=== PATIENT | female | born 1965 | race American Indian/Alaskan Native ===

== ENCOUNTER 2017-05-13 16:13 | Emergency (ER) | payer MEDICAID ==
[2017-05-13] MEDS ORDERED: Sodium Chloride 0.9% 1,000 ML IV ONE (16:31)
[2017-05-13] MEDS ORDERED: (Novolin R) Insulin Human Regular 100 units/ml vial IV STA (16:31)
[2017-05-13 17:03] LABS: HCG,QUALITATIVE URINE NEGATIVE (NEGATIVE)
[2017-05-13 17:04] LABS: SQUAMOUS EPITHIAL < 1 /hpf (0-5); URINE BILIRUBIN NEGATIVE (NEGATIVE); URINE BLOOD NEGATIVE (NEGATIVE); URINE CLARITY Clear (Clear); URINE COLOR Colorless (YELLOW); URINE GLUCOSE (UA) 3+ mg/dL (Normal); URINE LEUKOCYTE ESTERASE NEG Leu/uL (Negative); URINE NITRATE NEGATIVE (NEGATIVE); URINE PROTEIN NEGATIVE (NEGATIVE); URINE UROBILINOGEN NORMAL mg/dL (0.2-1.0)
--- NOTE | 2017-05-13 17:10 | C.PDOC ---
History Of Present Illness 52 y/o female presents to ED by BLS/ALS with complaints of acute and chronic back pain. Patient was admitted in a medical center over night on 05/10 and discharged, then again over night on 05/11 and discharged. Pt states she has been taking Percocet for her back pain and has none now. Pt is here for the first time with no prior radiology examinations in our hospital system. Pt histrionic, yelling, crying, claiming she is in unbearable back pain and cannot allow examination of her back. Pt has hx of extensive narcotic, Xanax and ambien regimen- Percocet last filled on January 2017, x60 tabs 10/325. Denies any other complaints. Time Seen by Provider: 05/13/17 16:30 Chief Complaint (Nursing): High Blood Sugar History Per: Patient History/Exam Limitations: no limitations Onset/Duration Of Symptoms: Hrs Current Symptoms Are (Timing): Still Present Associated Infectious Symptoms: denies: Cough, Dysuria, Urinary Urgency, Urinary Frequency, Nausea, Vomiting, Diarrhea Treatment Prior To Provider Evaluation: Accucheck Recent travel outside of the [place]: No Past Medical History Reviewed: Historical Data, Nursing Documentation, Vital Signs Vital Signs: Last Vital Signs Temp Pulse 68 05/13/17 16:53 Resp 16 05/13/17 16:53 BP 126/55 L 05/13/17 16:53 Pulse Ox 98 05/13/17 16:53 - Medical History PMH: HTN Surgical History: CABG Family History: States: No Known Family Hx - Social History Hx Alcohol Use: No Hx Substance Use: No - Immunization History Hx Tetanus Toxoid Vaccination: No Hx Influenza Vaccination: No Hx Pneumococcal Vaccination: No Review Of Systems Constitutional: Negative for: Fever, Chills Respiratory: Negative for: Cough, Shortness of Breath Gastrointestinal: Negative for: Nausea, Vomiting, Abdominal Pain, Diarrhea Genitourinary: Negative for: Dysuria, Frequency, Incontinence, Hematuria Musculoskeletal: Positive for: Back Pain (Acute and chronic) Neurological: Negative for: Weakness, Numbness Physical Exam - Physical Exam Appears: Well, Non-toxic, No Acute Distress, Other (Obese, Cannot roll over, argumentative and yelling) Skin: Normal Color, Warm, Dry Head: Atraumatic, Normacephalic Eye(s): bilateral: Normal Inspection Oral Mucosa: Moist Neck: Supple Chest: Symmetrical, No Tenderness Cardiovascular: Rhythm Regular Respiratory: Normal Breath Sounds, No Rales, No Rhonchi, No Wheezing Gastrointestinal/Abdominal: Soft, No Tenderness, No Distention Back: No CVA Tenderness, No Vertebral Tenderness ED Course And Treatment - Laboratory Results Result Diagrams: 05/13/17 17:15 05/13/17 17:15 Lab Interpretation: Abnormal (+ anemia, chronic, tox + benzo's, ua neg.) Urine POC: Negative - Radiology CXR: Interpreted by Me CXR Interpretation: Yes: No Acute Disease - Other Rad Chest X-Ray X-Ray: Viewed By Me, Read By Radiologist Interpretation: Impression: Status post median sternotomy and CABG. Mild venous congestion. Mild patchy increased markings at the left lung base. Degenerative changes in the spine and shoulders. Mild cardiomegaly. Progress Note: d/w Dr. Sapp- PMD- explains pt h/o chronic back pain and surgery with chronic narcotics abuse issues. No radiology at our hospital to explain pt's issues, pt's first visit to . Explained to pt immediatly on arrival, no narcotics will be given, nor prescribed and repeat admission (3rd in 4 days) will not be considered and pt best to f/u @ [facility] [place] where admissions and evaluation and radiology studies have been done. Pt immediatly calm and cooperative when a unified front of not giving narcotics for her issues today despite repeatedly asking for narcotic pain meds. 1730: Though pt's BS > 400 on arrival, pt declines insulin and IVF's, has elected to leave ED and f/u with PMD and will take her normal meds as usual- has adequate insulin 70/30 @ home and FS machine/strips/lancets. Pt refused further w/u and asked for IV to be removed and refuses further care. Her wishes respected. pt's back was not examined as pt refused. Pt able to get up from strecher and dress herself without assistance and ambulate from ED without apparent pain. Reevaluation Time: 17:26 Reassessment Condition: Improved (pain free without any pain meds nor NSAIDS) Medical Decision Making Medical Decision Making: Ordered EKG, blood work, CXR and urinalysis. Administered IV fluids. Disposition Doctor Will See Patient In The: Office Counseled Patient/Family Regarding: Studies Performed, Diagnosis - Disposition Referrals: Elan Sapp MD [Staff Provider] - Disposition: HOME/ ROUTINE Disposition Time: 17:34 Condition: GOOD Additional Instructions: normal diabetes regimen- strive to control blood sugar below 250 Seek outpatient follow-up for your chronic pain and narcotics issues. Instructions: Chronic Pain (ED), Diabetes Mellitus Type 1 in Adults (ED) Forms: wireLawyer (Congolese) - Clinical Impression Clinical Impression: Hyperglycemia, Drug-seeking behavior - Scribe Statement The provider has reviewed the documentation as recorded by the Scribestefania Borrero All medical record entries made by the Scribe were at my direction and personally dictated by me. I have reviewed the chart and agree that the record accurately reflects my personal performance of the history, physical exam, medical decision making, and the department course for this patient. I have also personally directed, reviewed, and agree with the discharge instructions and disposition.
[2017-05-13 17:18] LABS: BASO # 0.1 K/uL (0.0-0.2); BASO % 0.8 % (0.0-2.0); EOS # 0.4 K/uL (0.0-0.7); EOS % 5.7 % (0.0-4.0); HEMOGLOBIN 9.7 g/dL (11.0-16.0); LYMPH # 2.8 K/uL (1.0-4.3); LYMPH % 36.9 % (20.0-40.0); MEAN CORPUSCULAR HEMOGLOBIN 30.3 pg (27.0-31.0); MEAN CORPUSCULAR HGB CONC 34.4 g/dL (33.0-37.0); MEAN PLATELET VOLUME 8.3 fL (7.2-11.7); MONO # 0.6 K/uL (0.0-0.8); MONO % 7.3 % (0.0-10.0); NEUT # 3.8 K/uL (1.8-7.0); NEUT % 49.3 % (50.0-75.0); NRBC % 0.1 % (0.0-2.0); RBC 3.22 Mil/uL (3.80-5.20); RED CELL DISTRIBUTION WIDTH 12.9 % (11.5-14.5); WHITE BLOOD COUNT 7.7 K/uL (4.8-10.8)
[2017-05-13 17:19] LABS: BARBITURATES, UR NEGATIVE (NEGATIVE); OPIATES, UR NEGATIVE (NEGATIVE); PHENCYCLIDINE, UR NEGATIVE (NEGATIVE)
[2017-05-13 17:21] LABS: BENZODIAZEPINES, UR POSITIVE (NEGATIVE)
--- NOTE | 2017-05-13 17:26 | RAD ---
Chest x-ray single frontal view History: Diabetic. Comparison: None available. Findings: Status post median sternotomy and CABG. Mild venous congestion. Mild patchy increased markings at the left lung base. Degenerative changes in the spine and shoulders. Mild cardiomegaly. Impression: Status post median sternotomy and CABG. Mild venous congestion. Mild patchy increased markings at the left lung base. Degenerative changes in the spine and shoulders. Mild cardiomegaly.
[2017-05-13 17:35] VITALS: BP 126/55; PULSE 68; RESP 16; O2SAT 98
[2017-05-13 17:36] LABS: ALB/GLOB RATIO 1.4 (1.0-2.1); ALBUMIN 3.9 g/dL (3.5-5.0); ALT/SGPT 28 U/L (9-52); AST/SGOT 23 U/L (14-36); BLOOD UREA NITROGEN 17 mg/dL (7-17); CALCIUM 8.8 mg/dl (8.6-10.4); GFR AFRICAN-AMERICAN 57; GFR NON-AFRICAN AMERICAN 47
== END 2017-05-13 17:46 | disposition home or self-care (01) ==
LOC: C.ER 16:13
DX: E11.65 Type 2 diabetes mellitus with hyperglycemia (principal); I10 Essential (primary) hypertension; Z76.5 Malingerer [conscious simulation]